=== PATIENT | male | born 1960 | race Caucasian/White ===

== ENCOUNTER → 2020-02-14 14:09 | Outpatient (BNVA) | payer MEDICARE, MEDICAID, SELFPAY | PROVIDERS: Visit Provider Orthopaedic Surgery | DX: M75.52 Bursitis of left shoulder (principal); M19.012 Primary osteoarthritis, left shoulder | CPT/HCPCS: 20610; 99202; J1100 ==

== ENCOUNTER 2020-03-29 13:00 | Outpatient (RCR) | payer MEDICARE, MEDICAID, SELFPAY ==
--- NOTE | 2020-03-03 16:10 | MHC.PT.EP ---
[facility] [place] Office [place] Office [place] Office [address] Hermelindo Dominguez [address] [phone] F: [phone] F: [phone] F: [phone] F: [phone] Physical Therapy Plan of Care Date of Evaluation: 03/03/20 Date of Surgery: Diagnosis: OA left shoulder Assessment: Pt has significant hypomobility in his thoracic and lower cervical spine. Laying down he is unable to lay flat due to severe trunk kyphosis. The patient has decreased shoulder mobility likely due to nerve impingement and referred pain as well as secondary shoulder impingement. Pt will benefit from posture retraining, behavior modification, and postural strengthening exercises. Frequency and Duration: The patient will be seen 2x/week for 4 weeks. Short Term Goals: -Pt to able to demonstrate proper sitting posture with the use of a lumbar roll to decrease aggravating factors. - Pt to be able to demonstrate proper posture for common leisure activities such as crocheting and phone/tablet use. 2 weeks - For the patient to demonstrate proper upright sitting posture with use of the lumbar roll to improve compliance and carryover. Plant Operations Engineer Goals: 4 weeks - The patient to have greater than 160 degrees of flexion and abduction to show improved functional ROM. 4 weeks ? The patient to have 5/5 strength with flexion and abduction to demonstrate functional strength 4 weeks ? The patient to be able to return to all functional reaching, self care ADL's without any limitation from pain or loss of ROM. Treatment Plan: Modalities to reduce pain, spasms and effusion. Manual therapy to restore motion and function. Therapeutic exercise to improve strength and flexibility. Neuromuscular re-education for posture and balance. Therapeutic activities to return to functional activities of daily living. Please sign and return to therapist. Thank you for your referral.
--- NOTE | 2020-03-29 15:06 | MHC.PT.DC ---
[facility] [place] [facility] [place] Office [place] Office [address] Hermelindo Dominguez [address] [facility] [phone] F: [phone] F: [phone] F: [phone] F: [phone] Physical Therapy Discharge Report Diagnosis: OA left shoulder Date of Surgery: Date of Evaluation: 03/03/20 Date of Discharge: 03/29/20 Treatments to Date: 8 Cancellations to Date: 1 No Shows to Date: 1 Discharge Status: Improved Function Independent with HEP Discharge Summary: Pt has visibly improved sitting and standing posture. Pt is independent with his HEP for postural strengthening. The patient has 5/5 shoulder strength in available ROM. He has functional ROM, but with intermittent pain. He did not meet his ROM goals. He is being d/c at this time to a HEP due to reaching a plateau. He will return to his MD for a possible neurosurgeon consult. The patient is tired of the pain, I need a solution, something has to be done Electronically signed by: Anjelica Coffey PT DPT Please sign and return to therapist. Thank you for your referral.
== END 2020-06-09 08:58 | disposition other institution (70) ==
LOC: HO.PT 13:00
PROVIDERS: PCP Internal Medicine; Visit Provider Orthopaedic Surgery
DX: M19.012 Primary osteoarthritis, left shoulder (principal); M75.52 Bursitis of left shoulder
CPT/HCPCS: 97110; 97112; 97140; 97162